=== PATIENT | male | born 1965 | race Caucasian/White ===

== ENCOUNTER 2021-10-27 02:28 | Outpatient (CLI) | payer BC, SELFPAY ==
[2021-10-27 11:39] LABS: Abs Immature Grans 0.03 10^3/uL (0.0-0.06); Absolute Basophil Count 0.07 10^3/uL (0.0-0.2); Absolute Eosinophil Count 0.03 10^3/uL (0.0-0.7); Absolute Lymphocyte Count 1.47 10^3/uL (1.2-3.4); Absolute Monocyte Count 0.61 10^3/uL (0.1-0.8); Absolute Neutrophil Count 5.59 10^3/uL (1.2-6.7); Basophils % 0.9; Eosinophils % 0.4; HCT 41.3 % (40.0-50.0); Immature Grans % 0.4; Lymphocytes % 18.8; MCH 35.6 pg (27.0-33.0); MCHC 33.9 % (32.0-36.0); MCV 105 fL (80-95); MPV 10.4 fL (8.0-11.0); Monocytes % 7.8; Neutrophils % 71.7; Platelet Count 203 10^3/uL (130-400); RBC 3.93 10^6/uL (4.36-5.78); RDW 13.9 % (11.8-14.1); RDW-SD 54.4 fL
[2021-10-27 11:53] LABS: ALT 33 U/L (16-63); AST 28 U/L (15-37); Albumin 4.2 g/dL (3.4-5.0); Alkaline Phosphatase 107 U/L (46-116); Anion Gap 9.7 mmol/L (3-11); BUN 14 mg/dL (7-18); Bilirubin, Total 0.8 mg/dL (0.2-1.0); CO2 28.3 mmol/L (21.0-32.0); Chloride 102 mmol/L (98-107); Estimated GFR 87.78 (mL/min/1.73m2); Glucose 128 mg/dL (74-106); Potassium 4.3 mmol/L (3.5-5.1); Sodium 140 mmol/L (136-145); Total Protein 7.8 g/dL (6.4-8.2)
[2021-11-02 14:33] LABS: CA 19-9 9 U/mL (<35)
== END 2021-10-27 02:29 | disposition home or self-care (01) ==
LOC: LBO 02:29
PROVIDERS: PCP Internal Medicine; Visit Provider Internal Medicine Hematology & Oncology
DX: C22.1 Intrahepatic bile duct carcinoma (principal)
CPT/HCPCS: 36415; 80053; 85025; 86301

== ENCOUNTER 2021-11-04 01:40 | Outpatient (CLI) | payer BC, SELFPAY ==
[2021-11-04 12:39] LABS: Abs Immature Grans 0.02 10^3/uL (0.0-0.06); Absolute Basophil Count 0.03 10^3/uL (0.0-0.2); Absolute Eosinophil Count 0.34 10^3/uL (0.0-0.7); Absolute Lymphocyte Count 1.11 10^3/uL (1.2-3.4); Absolute Monocyte Count 0.59 10^3/uL (0.1-0.8); Absolute Neutrophil Count 5.56 10^3/uL (1.2-6.7); Basophils % 0.4; Eosinophils % 4.4; HCT 42.2 % (40.0-50.0); HGB 14.4 g/dL (13.5-17.5); Immature Grans % 0.3; Lymphocytes % 14.5; MCH 35.6 pg (27.0-33.0); MCHC 34.1 % (32.0-36.0); MCV 105 fL (80-95); MPV 10.1 fL (8.0-11.0); Monocytes % 7.7; Neutrophils % 72.7; Platelet Count 203 10^3/uL (130-400); RBC 4.04 10^6/uL (4.36-5.78); RDW 13.3 % (11.8-14.1); RDW-SD 51.8 fL; WBC 7.65 10^3/uL (4.4-10.8)
[2021-11-04 13:09] LABS: ALT 29 U/L (16-63); AST 22 U/L (15-37); Albumin 4.2 g/dL (3.4-5.0); Alkaline Phosphatase 84 U/L (46-116); Anion Gap 7.7 mmol/L (3-11); BUN 13 mg/dL (7-18); Bilirubin, Total 0.6 mg/dL (0.2-1.0); CO2 29.3 mmol/L (21.0-32.0); CREATININE 0.9 mg/dL (0.70-1.30); Calcium 8.9 mg/dL (8.5-10.1); Chloride 103 mmol/L (98-107); Estimated GFR 99.62 (mL/min/1.73m2); Glucose 113 mg/dL (74-106); Potassium 4.2 mmol/L (3.5-5.1); Sodium 140 mmol/L (136-145); Total Protein 7.7 g/dL (6.4-8.2)
== END 2021-11-04 01:41 | disposition home or self-care (01) ==
LOC: LBO 01:40
PROVIDERS: PCP Internal Medicine; Visit Provider Internal Medicine Hematology & Oncology
DX: C22.1 Intrahepatic bile duct carcinoma (principal)
CPT/HCPCS: 36415; 80053; 85025

== ENCOUNTER 2021-11-11 03:29 | Outpatient (CLI) | payer BC, SELFPAY ==
[2021-11-11 11:19] LABS: Abs Immature Grans 0.02 10^3/uL (0.0-0.06); Absolute Basophil Count 0.04 10^3/uL (0.0-0.2); Absolute Eosinophil Count 0.14 10^3/uL (0.0-0.7); Absolute Lymphocyte Count 0.96 10^3/uL (1.2-3.4); Absolute Monocyte Count 0.57 10^3/uL (0.1-0.8); Absolute Neutrophil Count 6.34 10^3/uL (1.2-6.7); Basophils % 0.5; Eosinophils % 1.7; HCT 42.5 % (40.0-50.0); HGB 14.9 g/dL (13.5-17.5); Immature Grans % 0.2; Lymphocytes % 11.9; MCH 36.3 pg (27.0-33.0); MCHC 35.1 % (32.0-36.0); MCV 104 fL (80-95); Monocytes % 7.1; Neutrophils % 78.6; Platelet Count 193 10^3/uL (130-400); RDW 13.3 % (11.8-14.1); WBC 8.07 10^3/uL (4.4-10.8)
[2021-11-11 11:51] LABS: ALT 25 U/L (16-63); AST 24 U/L (15-37); Albumin 4.1 g/dL (3.4-5.0); Alkaline Phosphatase 80 U/L (46-116); Anion Gap 8.2 mmol/L (3-11); BUN 13 mg/dL (7-18); Bilirubin, Total 0.8 mg/dL (0.2-1.0); CO2 28.8 mmol/L (21.0-32.0); Calcium 9.3 mg/dL (8.5-10.1); Chloride 101 mmol/L (98-107); Estimated GFR 87.78 (mL/min/1.73m2); Glucose 120 mg/dL (74-106); Potassium 4.3 mmol/L (3.5-5.1); Sodium 138 mmol/L (136-145); Total Protein 7.7 g/dL (6.4-8.2)
== END 2021-11-11 03:30 | disposition home or self-care (01) ==
LOC: LBO 03:29
PROVIDERS: PCP Internal Medicine; Visit Provider Internal Medicine Hematology & Oncology
DX: C22.1 Intrahepatic bile duct carcinoma (principal)
CPT/HCPCS: 36415; 80053; 85025

== ENCOUNTER 2021-11-18 03:21 | Outpatient (CLI) | payer BC, SELFPAY ==
[2021-11-18 11:18] LABS: Abs Immature Grans 0.02 10^3/uL (0.0-0.06); Absolute Basophil Count 0.02 10^3/uL (0.0-0.2); Absolute Eosinophil Count 0.17 10^3/uL (0.0-0.7); Absolute Lymphocyte Count 0.74 10^3/uL (1.2-3.4); Absolute Monocyte Count 0.61 10^3/uL (0.1-0.8); Absolute Neutrophil Count 4.28 10^3/uL (1.2-6.7); Basophils % 0.3; Eosinophils % 2.9; HCT 43.7 % (40.0-50.0); HGB 14.8 g/dL (13.5-17.5); Immature Grans % 0.3; Lymphocytes % 12.7; MCH 35.3 pg (27.0-33.0); MCHC 33.9 % (32.0-36.0); MCV 104 fL (80-95); MPV 10.4 fL (8.0-11.0); Monocytes % 10.4; Neutrophils % 73.4; Platelet Count 177 10^3/uL (130-400); RBC 4.19 10^6/uL (4.36-5.78); RDW 13.1 % (11.8-14.1); WBC 5.84 10^3/uL (4.4-10.8)
[2021-11-18 11:36] LABS: ALT 28 U/L (16-63); AST 27 U/L (15-37); Albumin 3.8 g/dL (3.4-5.0); Alkaline Phosphatase 80 U/L (46-116); Anion Gap 6.7 mmol/L (3-11); BUN 11 mg/dL (7-18); Bilirubin, Total 0.5 mg/dL (0.2-1.0); CO2 29.3 mmol/L (21.0-32.0); CREATININE 1.1 mg/dL (0.70-1.30); Calcium 8.9 mg/dL (8.5-10.1); Chloride 102 mmol/L (98-107); Glucose 158 mg/dL (74-106); Potassium 3.9 mmol/L (3.5-5.1); Sodium 138 mmol/L (136-145); Total Protein 7.2 g/dL (6.4-8.2)
== END 2021-11-18 03:22 | disposition home or self-care (01) ==
LOC: LBO 03:21
PROVIDERS: PCP Internal Medicine; Visit Provider Internal Medicine Hematology & Oncology
DX: C22.1 Intrahepatic bile duct carcinoma (principal)
CPT/HCPCS: 36415; 80053; 85025

== ENCOUNTER 2021-11-25 02:44 | Outpatient (CLI) | payer BC, SELFPAY ==
[2021-11-25 11:50] LABS: Abs Immature Grans 0.02 10^3/uL (0.0-0.06); Absolute Basophil Count 0.02 10^3/uL (0.0-0.2); Absolute Lymphocyte Count 0.71 10^3/uL (1.2-3.4); Absolute Monocyte Count 0.65 10^3/uL (0.1-0.8); Absolute Neutrophil Count 4.65 10^3/uL (1.2-6.7); Basophils % 0.3; Eosinophils % 1.6; HCT 45.7 % (40.0-50.0); HGB 15.8 g/dL (13.5-17.5); Immature Grans % 0.3; Lymphocytes % 11.5; MCH 35.7 pg (27.0-33.0); MCHC 34.6 % (32.0-36.0); MCV 103 fL (80-95); MPV 9.8 fL (8.0-11.0); Monocytes % 10.6; Neutrophils % 75.7; Platelet Count 169 10^3/uL (130-400); RBC 4.42 10^6/uL (4.36-5.78); RDW-SD 49.9 fL; WBC 6.15 10^3/uL (4.4-10.8)
[2021-11-25 12:04] LABS: ALT 30 U/L (16-63); AST 31 U/L (15-37); Albumin 3.8 g/dL (3.4-5.0); Alkaline Phosphatase 82 U/L (46-116); Anion Gap 7.7 mmol/L (3-11); BUN 11 mg/dL (7-18); Bilirubin, Total 0.6 mg/dL (0.2-1.0); CO2 29.3 mmol/L (21.0-32.0); CREATININE 1.1 mg/dL (0.70-1.30); Calcium 9.1 mg/dL (8.5-10.1); Chloride 101 mmol/L (98-107); Glucose 119 mg/dL (74-106); Potassium 4.3 mmol/L (3.5-5.1); Sodium 138 mmol/L (136-145); Total Protein 7.5 g/dL (6.4-8.2)
== END 2021-11-25 02:45 | disposition home or self-care (01) ==
LOC: LBO 02:44
PROVIDERS: PCP Internal Medicine; Visit Provider Internal Medicine Hematology & Oncology
DX: C22.1 Intrahepatic bile duct carcinoma (principal)
CPT/HCPCS: 36415; 80053; 85025

== ENCOUNTER 2021-12-02 02:10 | Outpatient (CLI) | payer BC, SELFPAY ==
[2021-12-02 11:25] LABS: Abs Immature Grans 0.02 10^3/uL (0.0-0.06); Absolute Basophil Count 0.02 10^3/uL (0.0-0.2); Absolute Eosinophil Count 0.11 10^3/uL (0.0-0.7); Absolute Lymphocyte Count 0.59 10^3/uL (1.2-3.4); Absolute Monocyte Count 0.68 10^3/uL (0.1-0.8); Absolute Neutrophil Count 5.13 10^3/uL (1.2-6.7); Basophils % 0.3; Eosinophils % 1.7; HCT 44.7 % (40.0-50.0); HGB 15.1 g/dL (13.5-17.5); Immature Grans % 0.3; MCH 34.6 pg (27.0-33.0); MCHC 33.8 % (32.0-36.0); MCV 102 fL (80-95); MPV 9.6 fL (8.0-11.0); Monocytes % 10.4; Neutrophils % 78.3; Platelet Count 165 10^3/uL (130-400); RBC 4.37 10^6/uL (4.36-5.78); RDW 12.9 % (11.8-14.1); RDW-SD 49.2 fL; WBC 6.55 10^3/uL (4.4-10.8)
[2021-12-02 11:59] LABS: ALT 33 U/L (16-63); AST 36 U/L (15-37); Albumin 3.4 g/dL (3.4-5.0); Alkaline Phosphatase 94 U/L (46-116); Anion Gap 6.9 mmol/L (3-11); BUN 13 mg/dL (7-18); Bilirubin, Total 0.5 mg/dL (0.2-1.0); CO2 29.1 mmol/L (21.0-32.0); CREATININE 0.9 mg/dL (0.70-1.30); Calcium 8.7 mg/dL (8.5-10.1); Chloride 102 mmol/L (98-107); Estimated GFR 99.62 (mL/min/1.73m2); Glucose 135 mg/dL (74-106); Potassium 4.1 mmol/L (3.5-5.1); Sodium 138 mmol/L (136-145); Total Protein 6.9 g/dL (6.4-8.2)
== END 2021-12-02 02:11 | disposition home or self-care (01) ==
LOC: LBO 02:10
PROVIDERS: PCP Internal Medicine; Visit Provider Internal Medicine Hematology & Oncology
DX: C22.1 Intrahepatic bile duct carcinoma (principal)
CPT/HCPCS: 36415; 80053; 85025

== ENCOUNTER → 2021-12-28 01:36 | Outpatient (CLI) | payer BC, SELFPAY ==
[2021-12-28] MEDS: Barium Sulfate 2% W/V-Berry Smoothie 450 ML BTL PO ×2 (10:18→10:19)
--- NOTE | 2021-12-28 13:00 | DI.CT_ITS ---
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 TECHNIQUE: Imaging Protocol: Axial computed tomography images with coronal and sagittal reformatted images were created and reviewed CONTRAST MATERIAL: Intravenous: Omnipaque 350 Contrast volume:100 ml Oral: Yes COMPARISON: CT CT CHEST WO CONTRAST (GENERIC) from 04/01/2021 FINDINGS: CHEST: LUNGS: Solitary small 5 x 6 millimeter nodule in the right lower lobe is unchanged. There are no new additional lung nodules nor pleural effusions. No consolidation. Some platelike atelectasis is not ed in the lingular segment of the left lung.. MEDIASTINUM: There is no hilar nor mediastinal adenopathy. Visualized thyroid unremarkable. CARDIAC: Heart size is normal. There is no pericardial effusion.Caliber of the thoracic aorta is wit hin normal limits. OSSEOUS: No significant osseous lesions.. ABDOMEN: There is no ascites. LIVER: No ominous focal hepatic lesions. Hepatic steatosis noted. GALLBLADDER/BILIARY: There has been a Whipple's-type procedure with gastrojejunostomy, pancreatic hea d resection. Biliary anterior ostomy and cholecystectomy. There is a thin stent-hyp catheter in the duodenum extending from its junction with the pancreatic neck down into the 3rd part of the duodenum . PANCREAS: Head resection remainder of the pancreas appears unremarkable and the pancreatic duct is no t dilated. There is no peripancreatic fluid. SPLEEN: Spleen is not enlarged. There are no intrasplenic lesions. Splenic and portal veins are coleman nt. ADRENALS: There are no significant adrenal masses. KIDNEYS: No calculi nor hydronephrosis. No solid renal masses. Small benign cysts in left kidney. ABDOMINAL AORTA: Abdominal aorta is not enlarged. LYMPH NODES: There is no new abnormal tissue in the surgical bed region. No new adenopathy evident. No para-aortic adenopathy. ABDOMINAL WALL: No evidence of significant anterior abdominal wall nor inguinal hernia. GI: There is no evidence of bowel obstruction. PELVIS: LYMPH NODES: There is no intrapelvic nor inguinal adenopathy. GI: No evidence of appendicitis.Extensive sigmoid diverticulosis. No obvious acute diverticulitis. URINARY BLADDER: No calculi nor masses evident REPRODUCTIVE: Prostate gland upper normal. OSSEOUS: No significant osseous lesions. No fractures. Advanced disc space narrowing at L3-4 level. IMPRESSION: 1. There is evidence of Whipple's-type surgery as described above. Distal gastrectomy. Gastrojejuno stomy. Pancreatic head resection with anastomosis of the pancreatic neck to the duodenum with thin s ilastic-type stent at this level. Pancreatic duct is not dilated and there is no peripancreatic flui d. No bowel obstruction, free air, nor abscess. 2. No new abnormal tissue in the surgical bed nor obvious lymphadenopathy. 3. Stable appearance of solitary 5 millimeter nodule in the right lower lobe. No new additional lung nodules nor pleural effusions nor intrathoracic adenopathy. 4. RADIATION DOSE DELIVERED: 1,762.67mGy.cm Total DLP DATA REPOSITORY: All CT scans at this facility are submitted to the National Radiology Data Registry (NRDR) Dose Index Registry (DIR) with the [employer] (ACR). RADIATION OPTIMIZATION: All CT scans at this facility use at least one of these dose optimization te chniques: automated exposure control; mA and/or kV adjustment per patient size (includes targeted exa ms where dose is matched to clinical indication); or iterative reconstruction.
[2021-12-28] MEDS: Normal Saline Flush 10 ML SYR IVP (13:20)
[2021-12-28] MEDS: Omnipaque 350 MG/ML 500 ML BTL-Imaging package IJ (13:22)
== END ==
PROVIDERS: PCP Internal Medicine; Visit Provider Internal Medicine Hematology & Oncology
DX: C22.1 Intrahepatic bile duct carcinoma (principal); R91.8 Other nonspecific abnormal finding of lung field
CPT/HCPCS: 74177; 71260

== ENCOUNTER 2022-03-26 01:43 | Outpatient (CLI) | payer BC, SELFPAY ==
--- OUTSIDE RECORDS SUMMARY | 2022-03-26 01:52 | XMS_ITS ---
:1965 Author Support Name Relationship Address Phone Garland Hughes Unavailable [address] [phone] [place] [address] PROBLEMS Unknown Problems ALLERGIES No Information ENCOUNTERS Encounter Location Date Diagnosis [facility] [facility] [address] Nov, 2020 Melanocy tic nevi of left [facility] [place], [place] [id number] lowe r limb, including Associates hip D22.72 ; Maria Victoria anocytic nevi of right lo wer limb, including hip D22.71 ; Melanoc ytic nevi of left upp er limb, including should er D22.62 ; Melanoc ytic nevi of right up per limb, including shoulder D22.61 ; Inflame d seborrheic kerat osis L82.0 and Actini c keratosis L57.0 IMMUNIZATIONS No Known Immunizations SOCIAL HISTORY Never Assessed REASON FOR REFERRAL FUNCTIONAL STATUS PLAN OF CARE VITAL SIGNS MEDICATIONS Unknown Medications PROCEDURES Procedure Date Ordered Result Body Site DESTROY LESIONS, 2-Dec 12, 2020 DESTROY BENIGN/PREMLG LESION Dec 12, 2020 DESTRUCT LESION, -Dec 12, 2020 RESULTS No Results REASON FOR VISIT Insurance Providers [facility] Member Patient Patient Patient Patient Patient Subscriber Subscriber Subscriber Group Insurance Plan Plan Plan Plan ID Relationship Address Phone Name Date of ID Name Date of No Type Insurance Insurance Insurance Coverage to Subscriber Address Phone Name Dates [employer] of [phone] BC[employer] of self Garland 1965 [address] [id number] [place] [address] [address] Hughes [address] [address]
[2022-03-26 10:23] LABS: Abs Immature Grans 0.01 10^3/uL (0.0-0.06); Absolute Basophil Count 0.03 10^3/uL (0.0-0.2); Absolute Eosinophil Count 0.04 10^3/uL (0.0-0.7); Absolute Lymphocyte Count 0.83 10^3/uL (1.2-3.4); Absolute Monocyte Count 0.47 10^3/uL (0.1-0.8); Absolute Neutrophil Count 3.64 10^3/uL (1.2-6.7); Basophils % 0.6; Eosinophils % 0.8; HCT 46.7 % (40.0-50.0); HGB 15.9 g/dL (13.5-17.5); Immature Grans % 0.2; Lymphocytes % 16.5; MCH 33.5 pg (27.0-33.0); MCV 99 fL (80-95); MPV 10.3 fL (8.0-11.0); Monocytes % 9.4; Neutrophils % 72.5; Platelet Count 204 10^3/uL (130-400); RBC 4.74 10^6/uL (4.36-5.78); RDW 12.3 % (11.8-14.1); RDW-SD 45.1 fL; WBC 5.02 10^3/uL (4.4-10.8)
[2022-03-26 10:52] LABS: ALT 39 U/L (16-63); AST 39 U/L (15-37); Albumin 4.3 g/dL (3.4-5.0); Alkaline Phosphatase 136 U/L (46-116); Anion Gap 7.1 mmol/L (3-11); BUN 11 mg/dL (7-18); Bilirubin, Total 0.7 mg/dL (0.2-1.0); CO2 28.9 mmol/L (21.0-32.0); CREATININE 0.9 mg/dL (0.70-1.30); Calcium 9.3 mg/dL (8.5-10.1); Chloride 104 mmol/L (98-107); Estimated GFR 99.62 (mL/min/1.73m2); Glucose 122 mg/dL (74-106); Potassium 4.5 mmol/L (3.5-5.1); Sodium 140 mmol/L (136-145); Total Protein 7.8 g/dL (6.4-8.2)
== END 2022-03-26 01:44 | disposition home or self-care (01) ==
LOC: LBO 01:43
PROVIDERS: PCP Internal Medicine; Visit Provider Internal Medicine Hematology & Oncology
DX: C22.1 Intrahepatic bile duct carcinoma (principal)
CPT/HCPCS: 36415; 80053; 85025

== ENCOUNTER 2022-04-27 03:43 | Outpatient (CLI) | payer BC, SELFPAY ==
[2022-04-27 13:06] LABS: Abs Immature Grans 0.01 10^3/uL (0.0-0.06); Absolute Basophil Count 0.03 10^3/uL (0.0-0.2); Absolute Eosinophil Count 0.02 10^3/uL (0.0-0.7); Absolute Lymphocyte Count 0.75 10^3/uL (1.2-3.4); Absolute Monocyte Count 0.51 10^3/uL (0.1-0.8); Absolute Neutrophil Count 3.92 10^3/uL (1.2-6.7); Basophils % 0.6; Eosinophils % 0.4; HCT 42.9 % (40.0-50.0); HGB 14.6 g/dL (13.5-17.5); Immature Grans % 0.2; Lymphocytes % 14.3; MCH 33.6 pg (27.0-33.0); MCV 99 fL (80-95); Monocytes % 9.7; Neutrophils % 74.8; Platelet Count 208 10^3/uL (130-400); RBC 4.34 10^6/uL (4.36-5.78); RDW 12.5 % (11.8-14.1); RDW-SD 45.9 fL; WBC 5.24 10^3/uL (4.4-10.8)
[2022-04-27 13:23] LABS: ALT 36 U/L (16-63); AST 30 U/L (15-37); Albumin 3.9 g/dL (3.4-5.0); Alkaline Phosphatase 123 U/L (46-116); Anion Gap 8.5 mmol/L (3-11); BUN 13 mg/dL (7-18); Bilirubin, Total 0.6 mg/dL (0.2-1.0); CO2 28.5 mmol/L (21.0-32.0); Calcium 9.5 mg/dL (8.5-10.1); Chloride 105 mmol/L (98-107); Estimated GFR 87.78 (mL/min/1.73m2); Glucose 113 mg/dL (74-106); Potassium 4.2 mmol/L (3.5-5.1); Sodium 142 mmol/L (136-145); Total Protein 7.2 g/dL (6.4-8.2)
[2022-04-30 11:22] LABS: CA 19-9 5 U/mL (<35)
== END 2022-04-27 03:44 | disposition home or self-care (01) ==
PROVIDERS: PCP Internal Medicine; Visit Provider Internal Medicine Hematology & Oncology
DX: C22.1 Intrahepatic bile duct carcinoma (principal)
CPT/HCPCS: 36415; 80053; 85025; 86301

== ENCOUNTER 2022-07-23 00:10 | Outpatient (CLI) | payer BC, SELFPAY ==
--- OUTSIDE RECORDS SUMMARY | 2022-07-23 00:12 | XMS_ITS | Patient Health Record ---
Author Name Unknown Organization [facility] Address [address] [place] [id number] Care Team Providers Care Personal Care Service Provider Name Role Phone CAMELIA VELASQUEZ Unavailable [phone] ENCOUNTERS from 1965 to 2022-07-23 Encounter Location Date Provider Diagnosis [place] [facility] [address] [id number] Nov, CAMELIA VELASQUEZ Melanocytic nevi of left lower limb, including hip D22.72 ; Melanocytic nevi of right lower limb, including hip D22.71 ; Melanocytic nevi of left upper limb, including shoulder D22.62 ; Melanocytic nevi of right upper limb, including shoulder D22.61 ; Inflamed seborrheic keratosis L82.0 and Actinic keratosis L57.0 SOCIAL HISTORY Sex Assigned At : Social History Observation Description Sex Assigned At Unknown REASON FOR REFERRAL No Information REASON FOR VISIT No Information MENTAL STATUS No Information ASSESSMENTS Encounter Date Diagnosis Assessment Notes Treatment Notes Treatment Clinical Notes Nov, Melanocytic nevi of left lower limb, including hip (ICD-10 - D22.72) Nov, Melanocytic nevi of right lower limb, including hip (ICD-10 - D22.71) Nov, Melanocytic nevi of left upper limb, including shoulder (ICD-10 - D22.62) Nov, Melanocytic nevi of right upper limb, including shoulder (ICD-10 - D22.61) Nov, Inflamed seborrheic keratosis (ICD-10 - L82.0) Nov, Actinic keratosis (ICD-10 - L57.0) PLAN OF TREATMENT No Information Insurance Providers Payer Name Payer Address Payer Phone Insured Name Patient Relationship to Insured Coverage Start Date Coverage End Date Subscriber Number [facility] [address] [facility] [address] [address] Self - patient is the insured [id number]
[2022-07-23 11:48] LABS: Abs Immature Grans 0.01 10^3/uL (0.0-0.06); Absolute Basophil Count 0.04 10^3/uL (0.0-0.2); Absolute Eosinophil Count 0.05 10^3/uL (0.0-0.7); Absolute Lymphocyte Count 1.08 10^3/uL (1.2-3.4); Absolute Monocyte Count 0.49 10^3/uL (0.1-0.8); Absolute Neutrophil Count 3.92 10^3/uL (1.2-6.7); Basophils % 0.7; Eosinophils % 0.9; HCT 43.2 % (40.0-50.0); HGB 14.9 g/dL (13.5-17.5); Immature Grans % 0.2; Lymphocytes % 19.3; MCH 33.7 pg (27.0-33.0); MCHC 34.5 % (32.0-36.0); MCV 98 fL (80-95); MPV 9.7 fL (8.0-11.0); Monocytes % 8.8; Neutrophils % 70.1; Platelet Count 209 10^3/uL (130-400); RBC 4.42 10^6/uL (4.36-5.78); RDW 12.4 % (11.8-14.1); RDW-SD 45.1 fL; WBC 5.59 10^3/uL (4.4-10.8)
[2022-07-23 12:01] LABS: ALT 37 U/L (16-63); AST 28 U/L (15-37); Albumin 3.8 g/dL (3.4-5.0); Alkaline Phosphatase 99 U/L (46-116); Anion Gap 7.7 mmol/L (3-11); BUN 14 mg/dL (7-18); CO2 28.3 mmol/L (21.0-32.0); Calcium 8.8 mg/dL (8.5-10.1); Chloride 103 mmol/L (98-107); Estimated GFR 87.78 (mL/min/1.73m2); Glucose 112 mg/dL (74-106); Potassium 4.1 mmol/L (3.5-5.1); Sodium 139 mmol/L (136-145); Total Protein 7.2 g/dL (6.4-8.2)
[2022-07-23] MEDS: Omnipaque 350 MG/ML 100 ML BTL IJ (13:52)
[2022-07-23] MEDS: Normal Saline Flush 10 ML SYR IJ (13:52)
--- NOTE | 2022-07-23 13:54 | DI.CT_ITS ---
Exam(s) CT CHEST/ABD/PEL W EXAM: CT CHEST/ABD/PEL W CLINICAL HISTORY: CHOLANGIOCARCINOMA C22.1. TECHNIQUE: Imaging Protocol: Axial computed tomography images with coronal and sagittal reformatted images were created and reviewed CONTRAST MATERIAL: Intravenous: Omnipaque 350 Contrast volume:100 ml Oral: yes / COMPARISON: CT CT CHEST/ABD/PEL W from 12/28/2021 FINDINGS: CHEST: Tracheobronchial tree: Patent where visualized. Pulmonary parenchyma: No consolidation or dominant measurable mass. Stable 5 millimeter nodule poste rior right lower lobe. Pleura: No effusion or pneumothorax. Lymph nodes: Within normal limits. Aorta: Thoracic portion non-dilated. Heart: Normal size. No pericardial effusion. Mild coronary artery calcifications. Bones: Unremarkable for age. No lytic or blastic lesions.No compression fractures. ABDOMEN: Liver: Room stable appearance of hepatic steatosis. No measurable mass. Gallbladder and biliary tract: Status post cholecystectomy. No biliary dilatation. Small amount o f biliary air. Pancreas: Status post resection of the pancreatic head. Somewhat atrophic. no abnormal calcificatio ns or inflammatory process. Stomach and small bowel: Status post Whipple procedure. Catheter again noted in duodenum. Spleen: Normal. Kidneys: Normal size, contour and axis. No radiodense stones or obstructive uropathy. No suspicious m asses seen. Small renal cysts. Adrenal glands: No masses seen. Aorta: Abdominal portion non-dilated. Lymph nodes: Within normal limits. Soft tissues: Small amount of fat extending into the left inguinal canal. PELVIS: Bladder: Symmetric distention, no gross wall thickening. Bowel: Diverticulosis. No evidence of diverticulitis. No obstruction or bowel wall thickening. Peritoneal cavity: No ascites, collection or mesenteric inflammatory response. Bones: Degenerative changes in the spine. No compression fracture, lytic or blastic lesion. Reproductive organs: Within normal limits. IMPRESSION: Stable appearance of postsurgical changes. No evidence of adenopathy or other metastatic disease. Stable 5 millimeter nodule right lower lobe. RADIATION DOSE DELIVERED: 1,677.11mGy.cm Total DLP DATA REPOSITORY: All CT scans at this facility are submitted to the National Radiology Data Registry (NRDR) Dose Index Registry (DIR) with the [employer] (ACR). RADIATION OPTIMIZATION: All CT scans at this facility use at least one of these dose optimization te chniques: automated exposure control; mA and/or kV adjustment per patient size (includes targeted exa ms where dose is matched to clinical indication); or iterative reconstruction.
[2022-07-26 11:45] LABS: CA 19-9 15 U/mL (<35)
== END 2022-07-23 00:30 ==
LOC: DI 00:11
PROVIDERS: PCP Internal Medicine; Visit Provider Nurse Practitioner Family
DX: C22.1 Intrahepatic bile duct carcinoma (principal); Z98.890 Other specified postprocedural states
CPT/HCPCS: 74177; 80053; 71260; 85025; 86301; J3490

== ENCOUNTER 2022-11-03 03:28 | Outpatient (CLI) | payer BC, SELFPAY ==
[2022-11-03 12:59] LABS: Abs Immature Grans 0.03 10^3/uL (0.0-0.06); Absolute Basophil Count 0.02 10^3/uL (0.0-0.2); Absolute Eosinophil Count 0.04 10^3/uL (0.0-0.7); Absolute Lymphocyte Count 0.65 10^3/uL (1.2-3.4); Absolute Monocyte Count 0.61 10^3/uL (0.1-0.8); Absolute Neutrophil Count 4.85 10^3/uL (1.2-6.7); Basophils % 0.3; Eosinophils % 0.6; HCT 43.7 % (40.0-50.0); HGB 14.9 g/dL (13.5-17.5); Immature Grans % 0.5; Lymphocytes % 10.5; MCHC 34.1 % (32.0-36.0); MCV 97 fL (80-95); Monocytes % 9.8; Neutrophils % 78.3; Platelet Count 193 10^3/uL (130-400); RBC 4.52 10^6/uL (4.36-5.78); RDW 12.2 % (11.8-14.1); RDW-SD 43.8 fL
[2022-11-03 13:50] LABS: Iron 23 ug/dL (65-175); Total Iron Binding Capacity 312 ug/dL (250-450); Transferrin Sat 7 % (20-55)
[2022-11-03 13:51] LABS: ALT 94 U/L (16-63); AST 88 U/L (15-37); Albumin 3.6 g/dL (3.4-5.0); Alkaline Phosphatase 98 U/L (46-116); Anion Gap 8.7 mmol/L (3-11); BUN 13 mg/dL (7-18); Bilirubin, Total 0.7 mg/dL (0.2-1.0); CO2 26.3 mmol/L (21.0-32.0); CREATININE 1.4 mg/dL (0.70-1.30); Chloride 103 mmol/L (98-107); Estimated GFR 58.26 (mL/min/1.73m2); Ferritin 251 ng/mL (26-388); Glucose 103 mg/dL (74-106); Potassium 4.5 mmol/L (3.5-5.1); Sodium 138 mmol/L (136-145); Total Protein 7.3 g/dL (6.4-8.2); Vitamin B12 596 pg/mL (193-986)
[2022-11-03 14:02] LABS: Vitamin D 25 Total 40.6 ng/mL (30-100)
[2022-11-05 10:31] LABS: CA 19-9 13 U/mL (<35)
[2022-11-06 11:53] LABS: Free Retinol (Vitamin A) 52.9 mcg/dL (32.5-78.0)
[2022-11-08 02:11] LABS: Vitamin E, Serum 11.4 mg/L (5.5 - 17.0)
== END 2022-11-03 03:29 | disposition home or self-care (01) ==
LOC: LBO 03:28
PROVIDERS: PCP Internal Medicine; Visit Provider Internal Medicine Hematology & Oncology
DX: C22.1 Intrahepatic bile duct carcinoma (principal); Z90.410 Acquired total absence of pancreas; Z90.49 Acquired absence of other specified parts of digestive tract; D75.89 Other specified diseases of blood and blood-forming organs; Z79.899 Other long term (current) drug therapy
CPT/HCPCS: 36415; 80053; 82306; 82607; 82728; 83540; 83550; 84446; 84590; 85025; 86301

== ENCOUNTER → 2023-01-25 00:35 | Outpatient (CLI) | payer BC, SELFPAY ==
--- NOTE | 2023-01-25 | DI.CT_ITS ---
Exam(s) CT CHEST/ABD/PEL W EXAM: CT CHEST/ABD/PEL W CLINICAL HISTORY: CHOLANGIOCARCINOMA C22.1 HX WHIPPLE PROCEDURE Z90.410 Z90.49 ASSESS. TECHNIQUE: Imaging Protocol: Axial computed tomography images with coronal and sagittal reformatted images were created and reviewed CONTRAST MATERIAL: Intravenous: Omnipaque 350 Contrast volume:100 ml Oral: yes / COMPARISON: CT CT CHEST/ABD/PEL W from 07/23/2022 FINDINGS: CHEST: Tracheobronchial tree: Patent where visualized. Pulmonary parenchyma: No infiltrates. New 9 millimeter nodule posterior right lower lobe. Stable 5 mi llimeters nodule posterior lower lobe. Pleura: No effusion or pneumothorax. Lymph nodes: Within normal limits. Aorta: Thoracic portion non-dilated. Heart: No pericardial effusion. Heart size normal. Mild coronary artery calcifications. Bones: Unremarkable for age. No lytic or blastic lesions.No compression fractures. Soft tissues: Unremarkable. ABDOMEN and PELVIS: Liver: Mild hepatic steatosis. No measurable mass. Gallbladder and biliary tract: Status post cholecystectomy. No biliary dilatation. Small amount of biliary air. Pancreas: Status post resection of the pancreatic head. Spleen: Normal. Kidneys: Normal size, contour and axis. No radiodense stones hip. No obstructive uropathy. No suspic ious masses seen. Adrenal glands: No masses seen. Aorta: Abdominal portion non-dilated. Lymph nodes: Within normal limits. Soft tissues: Soft fatty containing left inguinal hernia. Bladder: Unremarkable. Bowel: Status post Whipple procedure. No obstruction or bowel wall thickening. Diverticulosis. Peritoneal cavity: No ascites. No focal collection. No mesenteric inflammatory response. Bones: Degenerative changes and mild scoliosis. Suspicious lesions. Reproductive organs: Within normal limits. IMPRESSION: Chest CT: New 9 millimeter nodule posterior right lower lobe, suspicious for metastatic lesion. Abdomen pelvis: Status post Whipple procedure. No evidence of adenopathy or metastatic disease. RADIATION DOSE DELIVERED: Total DLP DATA REPOSITORY: All CT scans at this facility are submitted to the National Radiology Data Registry (NRDR) Dose Index Registry (DIR) with the [employer] (ACR). RADIATION OPTIMIZATION: All CT scans at this facility use at least one of these dose optimization te chniques: automated exposure control; mA and/or kV adjustment per patient size (includes targeted exa ms where dose is matched to clinical indication); or iterative reconstruction.
[2023-01-25 11:39] LABS: Abs Immature Grans 0.01 10^3/uL (0.0-0.06); Absolute Basophil Count 0.03 10^3/uL (0.0-0.2); Absolute Eosinophil Count 0.07 10^3/uL (0.0-0.7); Absolute Lymphocyte Count 1.09 10^3/uL (1.2-3.4); Absolute Monocyte Count 0.43 10^3/uL (0.1-0.8); Absolute Neutrophil Count 3.67 10^3/uL (1.2-6.7); Basophils % 0.6; Eosinophils % 1.3; HCT 44.1 % (40.0-50.0); HGB 14.9 g/dL (13.5-17.5); Immature Grans % 0.2; Lymphocytes % 20.6; MCH 32.7 pg (27.0-33.0); MCHC 33.8 % (32.0-36.0); MCV 97 fL (80-95); Monocytes % 8.1; Neutrophils % 69.2; Platelet Count 216 10^3/uL (130-400); RBC 4.55 10^6/uL (4.36-5.78); RDW 13.2 % (11.8-14.1); RDW-SD 47.7 fL
[2023-01-25 11:51] LABS: ALT 34 U/L (16-63); AST 38 U/L (15-37); Albumin 3.9 g/dL (3.4-5.0); Alkaline Phosphatase 127 U/L (46-116); Anion Gap 10.2 mmol/L (3-11); BUN 13 mg/dL (7-18); Bilirubin, Total 0.7 mg/dL (0.2-1.0); CO2 26.8 mmol/L (21.0-32.0); CREATININE 1.1 mg/dL (0.70-1.30); Calcium 8.9 mg/dL (8.5-10.1); Chloride 103 mmol/L (98-107); Estimated GFR 77.81 (mL/min/1.73m2); Glucose 112 mg/dL (74-106); Potassium 4.1 mmol/L (3.5-5.1); Sodium 140 mmol/L (136-145); Total Protein 7.6 g/dL (6.4-8.2)
[2023-01-25 12:06] LABS: Iron 92 ug/dL (65-175); Total Iron Binding Capacity 347 ug/dL (250-450); Transferrin Sat 27 % (20-55)
[2023-01-25] MEDS: Normal Saline Flush 10 ML SYR IJ (13:38)
[2023-01-25] MEDS: Normal Saline - Diluent 50 ML VIAL IJ (13:40)
[2023-01-25] MEDS: Omnipaque 350 MG/ML 500 ML BTL-Imaging package 100 ML IJ (13:40)
[2023-01-26 16:30] LABS: CA 19-9 9 U/mL (<35)
== END ==
PROVIDERS: PCP Internal Medicine; Visit Provider Nurse Practitioner Family
DX: C22.1 Intrahepatic bile duct carcinoma (principal); R91.8 Other nonspecific abnormal finding of lung field
CPT/HCPCS: 74177; 80053; 71260; 83540; 83550; 85025; 86301

== ENCOUNTER 2023-05-19 09:55 | Outpatient (CLI) | payer BC, SELFPAY ==
[2023-05-19 09:41] LABS: Abs Immature Grans 0.03 10^3/uL (0.0-0.06); Absolute Basophil Count 0.04 10^3/uL (0.0-0.2); Absolute Eosinophil Count 0.09 10^3/uL (0.0-0.7); Absolute Monocyte Count 0.49 10^3/uL (0.1-0.8); Absolute Neutrophil Count 7.31 10^3/uL (1.2-6.7); Basophils % 0.5; HCT 44.9 % (40.0-50.0); HGB 15.4 g/dL (13.5-17.5); Immature Grans % 0.3; Lymphocytes % 9.1; MCH 33.7 pg (27.0-33.0); MCHC 34.3 % (32.0-36.0); MCV 98 fL (80-95); MPV 9.6 fL (8.0-11.0); Monocytes % 5.6; Neutrophils % 83.5; Platelet Count 237 10^3/uL (130-400); RBC 4.57 10^6/uL (4.36-5.78); RDW 13.2 % (11.8-14.1); RDW-SD 47.9 fL; WBC 8.76 10^3/uL (4.4-10.8)
[2023-05-19 10:00] LABS: ALT 36 U/L (16-63); AST 37 U/L (15-37); Albumin 3.6 g/dL (3.4-5.0); Alkaline Phosphatase 130 U/L (46-116); Anion Gap 7.2 mmol/L (3-11); BUN 10 mg/dL (7-18); Bilirubin, Total 0.5 mg/dL (0.2-1.0); CO2 29.8 mmol/L (21.0-32.0); CREATININE 0.8 mg/dL (0.70-1.30); Chloride 104 mmol/L (98-107); Estimated GFR 102.58 (mL/min/1.73m2); Glucose 133 mg/dL (74-106); Potassium 4.6 mmol/L (3.5-5.1); Sodium 141 mmol/L (136-145); Total Protein 7.3 g/dL (6.4-8.2)
[2023-05-20 09:29] LABS: CA 19-9 10 U/mL (<35)
== END 2023-05-19 09:56 | disposition home or self-care (01) ==
LOC: LBO 09:55
PROVIDERS: PCP Internal Medicine; Visit Provider Internal Medicine Hematology & Oncology
DX: C22.1 Intrahepatic bile duct carcinoma (principal); C78.01 Secondary malignant neoplasm of right lung
CPT/HCPCS: 36415; 80053; 85025; 86301